=== PATIENT | female | born 1985 | race Caucasian/White ===

== ENCOUNTER → 2017-11-23 | Outpatient (REF) | payer BC ==
[2017-11-28 11:51] LABS: HPV LOW VOL RFLX Negative (Negative)
== END ==
LOC: M LAB REF 13:36
DX: Z01.419 Encounter for gynecological examination (general) (routine) without abnormal findings (principal); Z11.51 Encounter for screening for human papillomavirus (HPV)

== ENCOUNTER → 2017-12-28 | Outpatient (CLI) | payer OTHER, BC | LOC: M LRY 16:20 | DX: S99.921A Unspecified injury of right foot, initial encounter (principal) | CPT/HCPCS: 73630 ==

== ENCOUNTER 2018-06-23 09:15 | Observation (INO) | payer BC, OTHER ==
[~2018-06-23] VITALS: Ht 157.5 cm; Wt 110.5 kg
[2018-06-23] MEDS: amLODIPine 10 MG TAB PO SCH (09:00)
[~2018-06-23 09:15] MED LIST: IBUP60TA PO; MAPA500T2 PO; PRENTAB40 PO; TUMS500C PO
[2018-06-23] MEDS ORDERED: SPRI28TA PO (09:28)
[2018-06-23] MEDS ORDERED: LABETALOL HCL 100 MG/20 ML VIAL IV STA ×2 (10:06→10:41)
[2018-06-23 10:21] LABS: BASO % 0.3 % (0.0-1.0); EOS # 0.1 10^3/uL (0.0-0.50); EOS % 1.2 % (0.0-3.0); HEMATOCRIT 38.3 % (36.0-47.0); HEMOGLOBIN 12.9 g/dl (12.0-15.5); LYMPH # 2.3 10^3/uL (1.5-4.5); LYMPH % 31.9 % (24.0-44.0); MEAN CORPUSCULAR HGB CONC 33.7 g/dl (32.0-36.5); MEAN CORPUSCULAR VOLUME 92.1 fl (80.0-96.0); MONO # 0.5 10^3/uL (0.0-0.8); MONO % 7.2 % (0.0-5.0); NEUTROPHILS # 4.3 10^3/uL (1.8-7.7); PLATELET COUNT, AUTOMATED 294 10^3/uL (150-450); RED BLOOD COUNT 4.16 10^6/uL (4.00-5.40); WHITE BLOOD COUNT 7.3 10^3/uL (4.0-10.0)
[2018-06-23 10:38] LABS: ALBUMIN 3.3 GM/DL (3.2-5.2); ALT/SGPT 20 U/L (12-78); BILIRUBIN,DIRECT < 0.1 MG/DL (0.0-0.2); BILIRUBIN,TOTAL 0.5 MG/DL (0.2-1.0); BLOOD UREA NITROGEN 8 MG/DL (7-18); CARBON DIOXIDE LEVEL 26 MEQ/L (21-32); CHLORIDE LEVEL 106 MEQ/L (98-107); CK-MB VALUE MASS < 1.0 NG/ML (<3.6); CPK CREATINE PHOSPHOKINASE 65 U/L (26-192); CREATININE FOR GFR 0.95 MG/DL (0.55-1.30); GLOMERULAR FILTRATION RATE > 60.0 (>60); GLUCOSE, FASTING 94 MG/DL (70-100); MB/CK RELATIVE INDEX 1.54 (< OR =4); SODIUM LEVEL 137 MEQ/L (136-145); TOTAL PROTEIN 7.9 GM/DL (6.4-8.2); TROPONIN I < 0.02 NG/ML (< 0.10)
[2018-06-23 10:41] LABS: APPEARANCE, URINE HAZY (CLEAR); BACTERIA, URINE AUTO 2+ (NEGATIVE); BILIRUBIN, URINE AUTO NEGATIVE (NEGATIVE); BLOOD, URINE BLOOD NEGATIVE (NEGATIVE); COLOR, URINE YELLOW (YELLOW); GLUCOSE, URINE (UA) AUTO NEGATIVE (NEGATIVE); KETONE, URINE AUTO NEGATIVE (NEGATIVE); LEUKOCYTE ESTERASE, URINE AUTO TRACE (NEGATIVE); MUCUS, URINE SMALL (NEGATIVE); NITRITE, URINE AUTO POSITIVE (NEGATIVE); PROTEIN, URINE AUTO NEGATIVE (NEGATIVE); RBC, URINE AUTO 2 /HPF (0-3); SPECIFIC GRAVITY URINE AUTO 1.005 (1.002-1.035); SQUAMOUS EPITHELIAL CELL UR AU 7 /HPF (0-6); UROBILINOGEN, URINE AUTO 0.2 mg/dL (0.0-2.0); WBC, URINE AUTO 5 /HPF (0-3)
[2018-06-23] MEDS ORDERED: LABETALOL 100 MG TAB PO ONE (10:45)
--- NOTE | 2018-06-23 11:07 | REP ---
CT Head without contrast HISTORY: Headache COMPARISON: None There is no intraparenchymal hemorrhage, acute infarct, mass or midline shift. The ventricular system is normal in appearance. There is no extra cerebral collection. There is no fracture. The visualized sinuses are clear. IMPRESSION: There is no intracranial lesion. Electronically Signed by Rodolfo Trimble MD 06/23/2018 10:59 A
--- NOTE | 2018-06-23 11:12 | REP ---
PA and lateral chest: There are no comparisons.. The lung hinds are clear. The cardiac size is normal. The desirae, mediastinum, and skeletal structures are unremarkable. Impression: Negative PA and lateral chest. Electronically Signed by Germán George MD 06/23/2018 11:03 A
[2018-06-23 12:06] LABS: FREE T4 0.98 NG/DL (0.76-1.46)
[2018-06-23] MEDS ORDERED: METOCLOPRAMIDE INJ 10MG/2ML VIAL (J2765) IV ONE (12:15)
[2018-06-23] MEDS ORDERED: EXCETAB81 PO (13:52)
[2018-06-23] MEDS ORDERED: IBUPOTC PO (13:52)
--- NOTE | 2018-06-23 14:02 | REP ---
MR Brain without contrast HISTORY: Headache COMPARISON : CT 06/23/2018 There are no areas of abnormal signal intensity in the brain. There is no intraparenchymal hemorrhage, infarct, mass or midline shift. The ventricular system is normal in appearance. There is no extra cerebral collection. No mucosal thickening is present in the left maxillary sinus. IMPRESSION: There is no intracranial lesion. Electronically Signed by Rodolfo Trimble MD 06/23/2018 01:54 P
--- NOTE | 2018-06-23 14:06 | REP ---
MRA BRAIN WITHOUT CONTRAST: HISTORY: Headache. 3D [id number] MR angiography was performed at the level of the [place] of [place]. There is no aneurysm, arteriovenous malformation, or atherosclerotic lesion. Major intracranial vessels are patent. The right vertebral artery is dominant. There is loss of the normal hyperintense signal in the distal left vertebral artery. There is reconstitution of hyperintense signal just proximal to the origin of the basilar artery. IMPRESSION: 1. There is no aneurysm or arteriovenous malformation. 2. There is loss of the normal hyperintense signal in the distal left vertebral artery with reconstitution just proximal to the origin of the basilar artery. 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 Electronically Signed by Rodolfo Trimble MD 06/23/2018 02:09 P
--- NOTE | 2018-06-23 15:25 | HPE ---
DATE OF ADMISSION: 06/23/2018 32-year-old female with no previous past medical history who presents to the emergency room with headaches and visual disturbances that she has been having on and off since March. When she was in the emergency room, she was found to have a blood pressure as high as 208/110. The patient was given 20 mg of labetalol IV, to which she responded well. The patient's systolic came down to 164, but within 2 hours the patient's systolic blood pressure jumped back up to over 200. The patient was given another 20 mg of IV labetalol and 100 mg of labetalol orally times one. The patient, at this time, is asymptomatic. Blood pressure is 182/90. She has a family history of hypertension, but not early hypertension in her family, specifically her mother. She denies any chest pain or shortness of breath. She will be admitted for further management. PAST MEDICAL HISTORY: Again, no past medical history. PAST SURGICAL HISTORY: 1. Left fasciotomy. ALLERGIES: She has no known drug allergies. FAMILY HISTORY: Positive for hypertension in her family, specifically the mother's side. SOCIAL HISTORY: The patient denies tobacco, alcohol or illicit drugs. MEDICATIONS: She takes at home: - Excedrin one tablet orally every 6 hours as needed - ibuprofen 600 mg orally every 6 hours as needed - Sprintec one tablet orally at bedtime REVIEW OF SYSTEMS: Negative for all ten major systems except what is mentioned in the history of present illness. PHYSICAL EXAMINATION: VITAL SIGNS: Blood pressure 182/90, heart rate 76 and regular, respiratory rate is 18, temperature 99.2, oxygen saturation 99% on room air. Head is atraumatic, normocephalic. Neck is supple with no jugular venous distention (JVD). Lungs clear to auscultation. S1, S2 audible. No murmurs appreciated. Abdomen is soft. Positive bowel sounds. No pedal edema. Skin is intact. Neurologic examination, the patient is awake, alert and oriented times three. LABORATORIES: WBC 7.3, hemoglobin 12.9, hematocrit 38.3, platelets 294,000. Sodium 137, potassium 4.0, chloride 106, CO2 is 26, BUN is 8, creatinine 0.95, glucose is 94, troponin is less than 0.02, TSH is 10, Free T4 0.98. CT of the head was negative for bleed or mass effect, as was the brain MRI. IMPRESSION: Hypertensive urgency. PLAN: The patient is to be admitted to the progressive care unit (PCU). I am going to start the patient on Norvasc 10 mg orally daily. It is possible that this is essential hypertension; however, secondary causes need to be ruled out. I am going to send a serum aldosterone renin ratio I am also going to send urine metanephrines and also ordering a renal Doppler to rule out renal artery stenosis. The TSH was very elevated. I am going to repeat to make sure that it is not a lab error. If it is not, then we will have to further investigate the possibility that this patient has hypothyroidism or subclinical hypothyroidism. We will continue following her care in the progressive care unit (PCU).
[2018-06-23 16:21] LABS: FREE T3 2.9 PG/ML (2.2-4.0)
[2018-06-23 20:30] VITALS: BP 164/90
--- NOTE | 2018-06-23 20:56 | ECGEPIP ---
Stationary ECG Study [facility] - ED Test Date: 2018-06-23 Pat Name: SOHAIL GUZMAN Department: Room: - Gender: F Vascular Manager: OLIVIA : 1985 Requested By: Sergio Ratliff Order Number: [id number] Reading MD: Marie Orellana Measurements Intervals [place] Rate: 89 P: 53 [place]: 126 QRS: 17 QRSD: 97 T: 26 QT: 346 QTc: 423 Interpretive Statements SINUS RHYTHM NO PRIOR FOR COMPARISON Electronically Signed On 06-23-2018 20:56:13 EDT by Marie Orellana
[2018-06-23 22:00] VITALS: BP 130/84
[2018-06-23 23:59] VITALS: BP 166/98
[2018-06-24] VITALS (8 sets, daily range): BP systolic 144–178; BP diastolic 72–104
[2018-06-24] MEDS: IBUPROFEN 600 MG TAB PO PRN ×2 (00:26→12:41)
[2018-06-24 06:45] LABS: BLOOD UREA NITROGEN 9 MG/DL (7-18); CALCIUM LEVEL 8.8 MG/DL (8.5-10.1); CARBON DIOXIDE LEVEL 28 MEQ/L (21-32); CHLORIDE LEVEL 106 MEQ/L (98-107); FREE T3 2.9 PG/ML (2.2-4.0); FREE T4 1.08 NG/DL (0.76-1.46); GLOMERULAR FILTRATION RATE > 60.0 (>60); GLUCOSE, FASTING 92 MG/DL (70-100); POTASSIUM SERUM 3.6 MEQ/L (3.5-5.1); SODIUM LEVEL 140 MEQ/L (136-145)
[2018-06-24] MEDS ORDERED: INFLUENZA QUADRIVALENT PF VACCINE 0.5ML SYRINGE (90686) IM ONE (09:00)
[2018-06-24] MEDS: amLODIPine 10 MG TAB PO SCH (09:08)
--- NOTE | 2018-06-24 09:22 | REP ---
Renal vascular ultrasound: Right Kidney: Extraparenchymal renal artery. Peak renal artery flow velocity unobtainable cm per seconds Peak aortic velocity: 83.6 cm/sec Renal/aortic ratio: Unobtainable. Intraparenchymal renal arteries. Resistive index: upper pole 0.67 mid pole 0.69 lower pole 0.68 Acceleration time: upper pole 0.04 mid pole 0.04 lower pole 0.04 Left kidney: Extraparenchymal renal artery: Peak renal artery flow velocity: Unobtainable cm/sec. Peak aortic velocity: 83.6 cm/sec Renal/aortic ratio: Unobtainable Intraparenchymal renal arteries: Resistive index: Upper pole 0.66 mid pole 0.68 lower pole 0.66 Acceleration time: Upper pole 0.04 mid pole 0.07 lower pole 0.07 Impression: The extraparenchymal renal arteries could not be adequately visualized because of body habitus and bowel gas. The intraparenchymal Doppler renal artery parameters are within normal limits. Depending on clinical concerns consider follow-up MRA or CTA of the extraparenchymal renal arteries. Bilateral renal ultrasound: The right kidney measures 11.7 x 5.2 x 4.0 cm. The left kidney measures 10.9 x 4.45 point 0 cm per The kidneys are normal size. Renal cortical echogenicity is normal bilaterally. There is no hydronephrosis on the right on the left. There are no renal calculi on the right on the left. There are no solid or cystic renal masses on the right on the left. Bladder: The bladder is adequately distended containing 199 ml of fluid. There are no bladder wall polyps or masses. Impression: Negative bilateral renal ultrasound. Electronically Signed by Germán George MD 06/24/2018 09:13 A
--- NOTE | 2018-06-24 14:44 | IPNPDOC ---
Text Note Date of Service The patient was seen on 06/24/18. NOTE Subjective: Patient complains of headache at the back of the head extending to the neck area. No nausea or vomiting . No visual disturbance today. PHYSICAL EXAMINATION: VITAL SIGNS: As below Head is atraumatic, normocephalic. Neck is supple with no jugular venous distention (JVD). Lungs clear to auscultation. Heart: S1, S2 audible. No murmurs appreciated. Abdomen is soft. Positive bowel sounds. No pedal edema. Skin is intact. Neurologic examination, the patient is awake, alert and oriented times three. Labs and Radiology: reviewed Assessment and plan: 32-year-old female with morbid obesity, intermittent headaches, gestational diabetes, presents to the emergency room with headaches and visual disturbances that she has been having on and off since March. When she was in the emergency room, she was found to have a blood pressure as high as 208/110. The patient was given 20 mg of labetalol IV, to which she responded well. The patient's systolic came down to 164, but within 2 hours the patient's systolic blood pressure jumped back up to over 200. The patient was given another 20 mg of IV labetalol and 100 mg of labetalol orally times one. The pateint was admitted for hypertensive urgency Hypertensive urgency blood pressure this am will continue amlodipine and will add HCTZ if needed. Subclinical hypothyroidism will start low dose Synthroid Headache high possibility of this being migraine will try NSAIDS, reglan, benadryl also imitrex if needed. Patient does take Excedrin at home off and on and has history of intermittent headaches. Morbid obesity DVT prophylaxis has been ordered. VS,Adibone, I+O VS, Fishbone, I+O Laboratory Tests 06/24/18 05:28 Calcium Level 8.8 Vital Signs Date Time Temp Pulse Resp B/P (MAP) Pulse Ox O2 Delivery O2 Flow Rate FiO2 06/24/18 14:00 97.5 87 20 95 06/24/18 12:50 172/98 (122) I&O- Last 24 Hours up to 6 AM 06/24/18 06:00 Output Total 350 ml Balance -350 ml ALEXX MAURO MD Jun 24, 2018 14:44
[2018-06-24] MEDS ORDERED: KETOROLAC 30 MG/ML VIAL (J1885) IV ONE (14:45)
[2018-06-24] MEDS ORDERED: diphenhydrAMINE INJ 50MG/ML VIAL (J1200) IV ONE (14:45)
[2018-06-24] MEDS ORDERED: METOCLOPRAMIDE INJ 10MG/2ML VIAL (J2765) IV ONE (14:45)
[2018-06-24] MEDS: hydroCHLOROthiazide 25 MG TAB PO SCH (14:55)
[2018-06-25 02:00] VITALS: BP 135/87
[2018-06-25 06:00] VITALS: BP 165/83
[2018-06-25] MEDS ORDERED: LEVOTHYROXINE 12.5MCG PER 1/2 TAB (0.0125MG) PO SCH (06:00)
[2018-06-25 08:33] VITALS: BP 165/83
[2018-06-25] MEDS: amLODIPine 10 MG TAB PO SCH (08:33)
[2018-06-25] MEDS: hydroCHLOROthiazide 25 MG TAB PO SCH (08:33)
[2018-06-25] MEDS ORDERED: HYDR25TAB PO (11:18)
[2018-06-25] MEDS ORDERED: LEVO25TA5 PO (11:18)
[2018-06-25] MEDS ORDERED: AMLO10TA5 PO (11:18)
--- NOTE | 2018-06-26 21:35 | IPNPDOC ---
Text Note Date of Service The patient was seen on 06/25/18. NOTE SUBJECTIVE: Patient does not have any complaints this am. Her headache has resolved. She had a good nights sleep. her Blood pressures are much better controlled. Feels good and ready to go home. PHYSICAL EXAMINATION: VITAL SIGNS: As below Head is atraumatic, normocephalic. Neck is supple with no jugular venous distention (JVD). Lungs clear to auscultation. Heart: S1, S2 audible. No murmurs appreciated. Abdomen is soft. Positive bowel sounds. No pedal edema. Skin is intact. Neurologic examination, the patient is awake, alert and oriented times three. Labs and Radiology: reviewed Assessment and plan: 32-year-old female with morbid obesity, intermittent headaches, gestational diabetes, presents to the emergency room with headaches and visual disturbances that she has been having on and off since March. When she was in the emergency room, she was found to have a blood pressure as high as 208/110. The patient was given 20 mg of labetalol IV, to which she responded well. The patient's systolic came down to 164, but within 2 hours the patient's systolic blood pressure jumped back up to over 200. The patient was given another 20 mg of IV labetalol and 100 mg of labetalol orally times one. The pateint was admitted for hypertensive urgency Hypertensive urgency blood pressure much better controlled. will continue amlodipine and will add HCTZ Subclinical hypothyroidism will start low dose Synthroid Headache resolved high possibility it was an acute migraine attack responded to combination of NSAIDS, reglan, benadryl Patient does take Excedrin at home off and on and has history of intermittent headaches. Morbid obesity counselled about loosing weight. Disposition: Patient discharged home in a stable condition. To follow up with PMD in 1 to 2 weeks. VS,Fishbone, I+O VS, Fishbone, I+O Vital Signs Date Time Temp Pulse Resp B/P (MAP) Pulse Ox O2 Delivery O2 Flow Rate FiO2 06/25/18 08:33 89 165/83 06/25/18 06:00 97.7 16 99 I&O- Last 24 Hours up to 6 AM 06/26/18 06:00 Intake Total 720 ml Output Total 1070 ml Balance -350 ml ALEXX MAURO MD Jun 26, 2018 21:35
[2018-06-29 00:09] LABS: CREATININE,RANDOM URINE 250.4 mg/dL (Not Estab.); URINE METANEPHR/CREAT RATIO 0.3 (0.0-1.0)
== END 2018-06-25 12:51 | disposition home or self-care (01) ==
LOC: M ED 09:15 → M ED INP 14:26 → M PCU 20:30 → M MSPAV 06-24 13:12
PROVIDERS: ADMIT Internal Medicine; ATTEND Internal Medicine Nephrology
DX: I16.0 Hypertensive urgency (principal); R51 Headache; H53.8 Other visual disturbances; E66.01 Morbid (severe) obesity due to excess calories; E03.9 Hypothyroidism, unspecified
CPT/HCPCS: 36415; 70450; 70544; 70551; 71046; 76775; 80048; 80076; 81001; 82088; 82550; 82553; 83835; 84244; 84439; 84443; 84481; 84484; 85025; 90471; 90686; 93005; 93041; 93975; 94760; 96374; 96375; 96376; 99285; J1200; J1885; J2765

== ENCOUNTER → 2018-07-22 | Outpatient (REF) | payer BC ==
[~2018-07-22] MED LIST changes: +AMLO10TA5 PO; +EXCETAB81 PO; +HYDR25TAB PO; +IBUP600T42 PO; -IBUP60TA PO; +IBUPOTC PO; +LEVO25TA5 PO; +SPRI28TA PO
== END ==
LOC: M SFHCPLAZ 14:11
PROVIDERS: ATTEND Family Medicine
DX: R29.898 Other symptoms and signs involving the musculoskeletal system (principal)

== ENCOUNTER → 2018-07-23 | Outpatient (CLI) | payer BC ==
[2018-07-23 19:33] LABS: BLOOD UREA NITROGEN 9 MG/DL (7-18); C REACTIVE PROTEIN QUANTITATIV 0.82 MG/DL (0.00-0.30); CALCIUM LEVEL 9.4 MG/DL (8.5-10.1); CARBON DIOXIDE LEVEL 29 MEQ/L (21-32); CHLORIDE LEVEL 100 MEQ/L (98-107); CPK CREATINE PHOSPHOKINASE 158 U/L (26-192); CREATININE FOR GFR 0.96 MG/DL (0.55-1.30); GLOMERULAR FILTRATION RATE > 60.0 (>60); GLUCOSE, FASTING 153 MG/DL (70-100); POTASSIUM SERUM 3.2 MEQ/L (3.5-5.1); SODIUM LEVEL 137 MEQ/L (136-145)
[2018-07-27 00:06] LABS: ALDOLASE 6.9 U/L (3.3-10.3); ANA (HEP2) Negative (.)
== END ==
LOC: M WUC 17:22
PROVIDERS: ATTEND Internal Medicine
DX: R29.898 Other symptoms and signs involving the musculoskeletal system (principal); I10 Essential (primary) hypertension

== ENCOUNTER → 2018-08-10 | Outpatient (REF) | payer BC | LOC: M LAB REF 09:16 | PROVIDERS: ATTEND Physician Assistant | DX: J02.9 Acute pharyngitis, unspecified (principal) ==

== ENCOUNTER → 2018-09-02 | Outpatient (REF) | payer BC | LOC: M LAB REF 13:18 | PROVIDERS: ATTEND Physician Assistant | DX: R30.0 Dysuria (principal); R35.0 Frequency of micturition ==

== ENCOUNTER → 2018-09-09 | Outpatient (CLI) | payer BC ==
[2018-09-09 14:13] LABS: ALT/SGPT 23 U/L (12-78); BILIRUBIN,TOTAL 0.8 MG/DL (0.2-1.0); BLOOD UREA NITROGEN 8 MG/DL (7-18); CALCIUM LEVEL 8.5 MG/DL (8.5-10.1); CARBON DIOXIDE LEVEL 28 MEQ/L (21-32); CHLORIDE LEVEL 102 MEQ/L (98-107); CHOLESTEROL LEVEL 216 MG/DL (<200); CREATININE FOR GFR 0.76 MG/DL (0.55-1.30); FREE T4 0.94 NG/DL (0.76-1.46); GLOMERULAR FILTRATION RATE > 60.0 (>60); GLUCOSE, FASTING 88 MG/DL (70-100); HDL CHOLESTEROL 54 MG/DL (>40); LDL CHOLESTEROL 110 MG/DL (<100); NON-HDL-C 162 MG/DL; POTASSIUM SERUM 4.1 MEQ/L (3.5-5.1); SODIUM LEVEL 139 MEQ/L (136-145); TOTAL PROTEIN 7.4 GM/DL (6.4-8.2); TRIGLYCERIDES LEVEL 260 MG/DL (<150)
== END ==
LOC: M WUC 10:23
PROVIDERS: ATTEND Physician Assistant
DX: I10 Essential (primary) hypertension (principal); E03.9 Hypothyroidism, unspecified

== ENCOUNTER → 2018-09-23 | Outpatient (REF) | payer BC ==
[2018-09-23 18:08] LABS: APPEARANCE, URINE CLEAR (CLEAR); BACTERIA, URINE AUTO NEGATIVE (NEGATIVE); BILIRUBIN, URINE AUTO NEGATIVE (NEGATIVE); BLOOD, URINE BLOOD 1+ (NEGATIVE); COLOR, URINE STRAW (YELLOW); GLUCOSE, URINE (UA) AUTO NEGATIVE (NEGATIVE); KETONE, URINE AUTO NEGATIVE (NEGATIVE); LEUKOCYTE ESTERASE, URINE AUTO TRACE (NEGATIVE); NITRITE, URINE AUTO NEGATIVE (NEGATIVE); PROTEIN, URINE AUTO NEGATIVE (NEGATIVE); RBC, URINE AUTO 0 /HPF (0-3); SPECIFIC GRAVITY URINE AUTO 1.002 (1.002-1.035); SQUAMOUS EPITHELIAL CELL UR AU 1 /HPF (0-6); UROBILINOGEN, URINE AUTO 0.2 mg/dL (0.0-2.0); WBC, URINE AUTO 2 /HPF (0-3)
== END ==
LOC: M LAB REF 17:43
PROVIDERS: ATTEND Physician Assistant
DX: R30.0 Dysuria (principal); O03.88 Urinary tract infection following complete or unspecified spontaneous abortion

== ENCOUNTER → 2018-11-25 | Outpatient (CLI) | payer BC ==
[2018-11-25 17:42] LABS: FREE T4 1.02 NG/DL (0.76-1.46); THYROID STIMULATING HORMONE 6.1 uIU/ML (0.358-3.740)
== END ==
LOC: M WUC 14:34
PROVIDERS: ATTEND Physician Assistant
DX: E03.9 Hypothyroidism, unspecified (principal)

== ENCOUNTER → 2019-01-10 | Outpatient (REF) | payer BC ==
[2019-01-12 14:52] LABS: HPV HYBRID CAPTURE II Negative (Negative)
== END ==
LOC: M LAB REF 17:08
PROVIDERS: ATTEND Advanced Practice Midwife
DX: Z12.4 Encounter for screening for malignant neoplasm of cervix (principal)
CPT/HCPCS: 87624; G0123

== ENCOUNTER 2019-01-17 17:45 | Emergency (ER) | payer BC, OTHER ==
[2019-01-17] MEDS ORDERED: LEVO25TA5 PO (18:02)
[2019-01-17 20:33] VITALS: BP 128/72
--- NOTE | 2019-01-18 08:22 | REP ---
Pelvis left hip: Three views. History: Trauma. Findings: AP view of the pelvis and AP and frog-leg views of the left hip are presented. Bony pelvic ring is intact. No pelvic or sacral fracture is seen. Symphysis pubis and SI joints are unremarkable. AP and frog-leg views of the left hip demonstrate smooth rounded femoral head and intact hip joint space. No fracture is seen. Periarticular soft tissues are unremarkable. Impression: No acute bony abnormality. Electronically Signed by Mateo Duncan MD 01/18/2019 09:20 A
== END 2019-01-17 20:34 | disposition home or self-care (01) ==
LOC: M ED 17:45
DX: S70.02XA Contusion of left hip, initial encounter (principal); V49.40XA Driver injured in collision with unspecified motor vehicles in traffic accident, initial encounter; Y92.410 Unspecified street and highway as the place of occurrence of the external cause; I10 Essential (primary) hypertension

== ENCOUNTER → 2019-01-25 | Outpatient (REF) | payer BC | LOC: M LAB REF 17:11 | PROVIDERS: ATTEND Physician Assistant | DX: J02.9 Acute pharyngitis, unspecified (principal) ==

== ENCOUNTER → 2019-02-09 | Outpatient (CLI) | payer BC ==
[2019-02-09 17:20] LABS: FREE T4 1.13 NG/DL (0.76-1.46); THYROID STIMULATING HORMONE 3.17 uIU/ML (0.358-3.740)
== END ==
LOC: M WUC 11:50
PROVIDERS: ATTEND Physician Assistant
DX: E03.9 Hypothyroidism, unspecified (principal)

== ENCOUNTER → 2019-03-23 | Outpatient (CLI) | payer BC ==
[2019-03-23 13:16] LABS: ALBUMIN 3.6 GM/DL (3.2-5.2); ALT/SGPT 84 U/L (12-78); BILIRUBIN,TOTAL 0.9 MG/DL (0.2-1.0); BLOOD UREA NITROGEN 14 MG/DL (7-18); CALCIUM LEVEL 9.4 MG/DL (8.5-10.1); CARBON DIOXIDE LEVEL 29 MEQ/L (21-32); CHLORIDE LEVEL 103 MEQ/L (98-107); CHOLESTEROL LEVEL 235 MG/DL (<200); CHOLESTEROL RISK RATIO 4.272 (<5); CREATININE FOR GFR 0.97 MG/DL (0.55-1.30); FREE T4 1.02 NG/DL (0.76-1.46); GLOMERULAR FILTRATION RATE > 60.0 (>60); GLUCOSE, FASTING 99 MG/DL (70-100); HDL CHOLESTEROL 55 MG/DL (>40); LDL CHOLESTEROL 154 MG/DL (<100); NON-HDL-C 180 MG/DL; POTASSIUM SERUM 3.9 MEQ/L (3.5-5.1); SODIUM LEVEL 140 MEQ/L (136-145); TOTAL PROTEIN 7.8 GM/DL (6.4-8.2); TRIGLYCERIDES LEVEL 130 MG/DL (<150)
== END ==
LOC: M WUC 08:57
PROVIDERS: ATTEND Physician Assistant
DX: I10 Essential (primary) hypertension (principal); E78.2 Mixed hyperlipidemia; E03.9 Hypothyroidism, unspecified

== ENCOUNTER → 2019-06-29 | Outpatient (CLI) | payer BC ==
[2019-06-29 20:12] LABS: CHOLESTEROL RISK RATIO 4.26 (<5); FREE T4 1.1 NG/DL (0.76-1.46); THYROID STIMULATING HORMONE 3.26 uIU/ML (0.358-3.740)
== END ==
LOC: M WUC 15:18
PROVIDERS: ATTEND Physician Assistant
DX: E03.9 Hypothyroidism, unspecified (principal)

== ENCOUNTER → 2019-12-09 | Outpatient (CLI) | payer BC ==
[~2019-12-09] MED LIST changes: -AMLO10TA5 PO; +AMLO1TAB25 PO
[2019-12-09 15:38] LABS: ALBUMIN 3.8 GM/DL (3.2-5.2); ALT/SGPT 82 U/L (12-78); BILIRUBIN,TOTAL 1.2 MG/DL (0.2-1.0); BLOOD UREA NITROGEN 10 MG/DL (7-18); CALCIUM LEVEL 9.4 MG/DL (8.5-10.1); CARBON DIOXIDE LEVEL 30 MEQ/L (21-32); CHLORIDE LEVEL 101 MEQ/L (98-107); CHOLESTEROL LEVEL 229 MG/DL (<200); GLOMERULAR FILTRATION RATE > 60.0 (>60); GLUCOSE, FASTING 103 MG/DL (70-100); HDL CHOLESTEROL 48 MG/DL (>40); LDL CHOLESTEROL 147 MG/DL (<100); NON-HDL-C 181 MG/DL; POTASSIUM SERUM 3.4 MEQ/L (3.5-5.1); SODIUM LEVEL 138 MEQ/L (136-145); THYROXINE (T4) 12.4 UG/DL (4.5-12.0); TOTAL PROTEIN 7.7 GM/DL (6.4-8.2); TRIGLYCERIDES LEVEL 169 MG/DL (<150)
== END ==
LOC: M WUC 09:19
PROVIDERS: ATTEND Physician Assistant
DX: E03.9 Hypothyroidism, unspecified (principal); I10 Essential (primary) hypertension; E78.2 Mixed hyperlipidemia

== ENCOUNTER → 2020-01-30 | Outpatient (CLI) | payer BC ==
[2020-01-30 18:07] LABS: FREE T4 1.07 NG/DL (0.76-1.46); THYROID STIMULATING HORMONE 4.36 uIU/ML (0.358-3.740)
== END ==
LOC: M WUC 14:21
PROVIDERS: ATTEND Physician Assistant Medical
DX: E03.9 Hypothyroidism, unspecified (principal)

== ENCOUNTER → 2020-02-04 | Outpatient (CLI) | payer BC | LOC: M LABSMTC 10:34 | PROVIDERS: ATTEND Orthopaedic Surgery | DX: Z01.812 Encounter for preprocedural laboratory examination (principal); Z20.828 Contact with and (suspected) exposure to other viral communicable diseases ==

== ENCOUNTER → 2020-03-19 | Outpatient (CLI) | payer BC ==
[2020-03-19 17:02] LABS: FREE T4 1.33 NG/DL (0.76-1.46); THYROID STIMULATING HORMONE 0.689 uIU/ML (0.358-3.740)
== END ==
LOC: M WUC 14:27
PROVIDERS: ATTEND Physician Assistant Medical
DX: E03.9 Hypothyroidism, unspecified (principal)

== ENCOUNTER → 2020-07-24 | Outpatient (CLI) | payer OTHER ==
[~2020-07-24] MED LIST changes: +HYDR-3490 PO; -HYDR25TAB PO
[2020-07-24 17:37] LABS: BLOOD UREA NITROGEN 10 MG/DL (7-18); GLOMERULAR FILTRATION RATE > 60.0 (>60)
== END ==
LOC: M WUC 14:18
PROVIDERS: ATTEND Physician Assistant
DX: M47.22 Other spondylosis with radiculopathy, cervical region (principal)

== ENCOUNTER → 2020-10-23 | Outpatient (CLI) | payer OTHER ==
[~2020-10-23] MED LIST changes: +MELO7.5T35 PO
== END ==
LOC: M PLAIMG 14:31
PROVIDERS: ATTEND Physician Assistant
DX: M47.22 Other spondylosis with radiculopathy, cervical region (principal)

== ENCOUNTER 2020-12-29 21:16 | Emergency (ER) | payer OTHER ==
[~2020-12-29] VITALS: Ht 157.5 cm; Wt 116.8 kg
[~2020-12-29 21:16] MED LIST changes: -MELO7.5T35 PO
[2020-12-29] MEDS ORDERED: MELO7.5T35 PO (21:29)
[2020-12-29] MEDS ORDERED: ACETAMINOPHEN 500 MG TAB PO ONE (22:55)
[2020-12-30 00:36] VITALS: BP 125/84
== END 2020-12-30 00:37 | disposition home or self-care (01) ==
LOC: M ED 21:16
DX: S50.11XA Contusion of right forearm, initial encounter (principal); W20.8XXA Other cause of strike by thrown, projected or falling object, initial encounter; Y92.9 Unspecified place or not applicable; Y93.9 Activity, unspecified; Y99.0 Civilian activity done for income or pay; I10 Essential (primary) hypertension

== ENCOUNTER → 2021-01-02 | Outpatient (CLI) | payer BC ==
[~2021-01-02] MED LIST changes: +MELO7.5T35 PO
[2021-01-02 17:12] LABS: ALBUMIN 3.4 GM/DL (3.2-5.2); ALT/SGPT 84 U/L (12-78); BLOOD UREA NITROGEN 9 MG/DL (7-18); CALCIUM LEVEL 9.2 MG/DL (8.5-10.1); CARBON DIOXIDE LEVEL 30 MEQ/L (21-32); CHLORIDE LEVEL 104 MEQ/L (98-107); CHOLESTEROL LEVEL 221 MG/DL (<200); CHOLESTEROL RISK RATIO 5.022 (<5); FREE T4 1.23 NG/DL (0.76-1.46); GLOMERULAR FILTRATION RATE > 60.0 (>60); GLUCOSE, FASTING 99 MG/DL (70-100); HDL CHOLESTEROL 44 MG/DL (>40); LDL CHOLESTEROL 136 MG/DL (<100); NON-HDL-C 177 MG/DL; POTASSIUM SERUM 4.2 MEQ/L (3.5-5.1); SODIUM LEVEL 139 MEQ/L (136-145); TOTAL PROTEIN 7.2 GM/DL (6.4-8.2); TRIGLYCERIDES LEVEL 204 MG/DL (<150)
== END ==
LOC: M WUC 10:48
PROVIDERS: ATTEND Family Medicine
DX: E03.9 Hypothyroidism, unspecified (principal); E78.2 Mixed hyperlipidemia

== ENCOUNTER → 2022-10-03 | Outpatient (CLI) | payer BC ==
[2022-10-03 17:26] LABS: HEMATOCRIT 39.5 % (36.0-47.0); HEMOGLOBIN 13.4 g/dl (12.0-15.5); MEAN CORPUSCULAR HEMOGLOBIN 31.8 pg (27.0-33.0); MEAN CORPUSCULAR HGB CONC 33.9 g/dl (32.0-36.5); MEAN CORPUSCULAR VOLUME 93.8 fl (80.0-96.0); PLATELET COUNT, AUTOMATED 323 10^3/uL (150-450); RED BLOOD COUNT 4.21 10^6/uL (4.00-5.40); WHITE BLOOD COUNT 9.3 10^3/uL (4.0-10.0)
[2022-10-03 18:02] LABS: ALBUMIN 3.7 G/DL (3.2-5.2); ALKALINE PHOSPHATASE 80 U/L (46-116); ALT/SGPT 71 U/L (7.0-40); AST/SGOT 45 U/L (<34); BILIRUBIN,TOTAL 1.5 MG/DL (0.3-1.2); BLOOD UREA NITROGEN 10 MG/DL (9-23); CALCIUM LEVEL 9.8 MG/DL (8.5-10.1); CARBON DIOXIDE LEVEL 28 MMOL/L (20-31); CHLORIDE LEVEL 100 MMOL/L (98-107); CHOLESTEROL LEVEL 221 MG/DL (<200); CREATININE FOR GFR 0.78 MG/DL (0.55-1.30); FREE T4 1.35 NG/DL (0.89-1.76); GLOMERULAR FILTRATION RATE > 60.0 (>60); GLUCOSE, FASTING 95 MG/DL (60-100); HDL CHOLESTEROL 51.3 MG/DL (>40); LDL CHOLESTEROL 135.5 MG/DL (<100); NON-HDL-C 169.7 MG/DL; POTASSIUM SERUM 3.4 MMOL/L (3.5-5.1); SODIUM LEVEL 137 MMOL/L (136-145); TOTAL PROTEIN 7.2 G/DL (5.7-8.2); TRIGLYCERIDES LEVEL 171 MG/DL (<150)
[2022-10-03 18:03] LABS: THYROID STIMULATING HORMONE 2.625 uIU/ML (0.55-4.78)
[2022-10-03 18:41] LABS: HEMOGLOBIN A1c 5.7 % (4.0-6.0)
== END ==
LOC: M WUC 11:32
DX: E03.9 Hypothyroidism, unspecified (principal); Z86.32 Personal history of gestational diabetes; R53.83 Other fatigue; I10 Essential (primary) hypertension

== ENCOUNTER → 2024-07-22 | Outpatient (CLI) | payer OTHER | LOC: M PLAIMG 14:03 | PROVIDERS: ATTEND Physician Assistant Medical | DX: M54.9 Dorsalgia, unspecified (principal) ==